=== PATIENT | female | born 1965 | race American Indian/Alaskan Native ===

== ENCOUNTER 2016-07-21 10:09 | Emergency (ER) | payer OTHER ==
[2016-07-21 10:20] VITALS: TEMP 97.9
--- NOTE | 2016-07-21 10:51 | C.PDOC ---
History Of Present Illness 51 y/o female, PMHx HTN diagnosed 1 year ago, taking Lisionpril 10mg daily, moderately compliant, presents to ED with c/o high blood pressure and headaches. Pt states she has had intermittent headaches for 1 year. She reports that she took off of work yesterday and noted her blood pressure was elevated. Patient brought to ER today by coworker. Describes headache as dull, throbbing, 3/10. Notes taking Tylenol 1 hour [employer]. Otherwise, denies fever, chills, nausea, vomiting, SOB, or chest pain. Time Seen by Provider: 07/21/16 10:19 Chief Complaint (Nursing): Headache History Per: Patient History/Exam Limitations: no limitations Onset/Duration Of Symptoms: Days Current Symptoms Are (Timing): Still Present Pain Scale Rating Of: 3 Preceeding Symptoms: None Associated Symptoms: denies: Photophobia, Nausea, Vomiting, Extremity Weakness Recent travel outside of the [place]: No Past Medical History Reviewed: Historical Data, Nursing Documentation, Vital Signs Vital Signs: Last Vital Signs Temp 97.9 F 07/21/16 10:17 Pulse 69 07/21/16 12:37 Resp 16 07/21/16 12:37 BP 140/88 07/21/16 12:37 Pulse Ox 100 07/21/16 12:37 - Medical History PMH: HTN Family History: States: Unknown Family Hx - Social History Hx Alcohol Use: No Hx Substance Use: No - Immunization History Hx Tetanus Toxoid Vaccination: No Hx Influenza Vaccination: No Hx Pneumococcal Vaccination: No Review Of Systems Except As Marked, All Systems Reviewed And Found Negative. Constitutional: Negative for: Fever, Chills Cardiovascular: Negative for: Chest Pain, Palpitations Respiratory: Negative for: Shortness of Breath Gastrointestinal: Negative for: Nausea, Vomiting Neurological: Positive for: Headache. Negative for: Weakness, Numbness, Dizziness Physical Exam - Physical Exam Appears: Non-toxic, No Acute Distress, Other (hypertensive on arrival) Skin: Normal Color, Warm, Dry Head: Atraumatic, Normacephalic Eye(s): bilateral: Normal Inspection, PERRL, EOMI Neck: Supple Chest: Symmetrical Cardiovascular: Rhythm Regular Respiratory: Normal Breath Sounds, No Rales, No Rhonchi, No Wheezing Gastrointestinal/Abdominal: Soft, No Tenderness Back: Normal Inspection Extremity: Normal ROM, Capillary Refill (< 2 sec. ) Neurological/Psych: Oriented x3, Normal Speech, Normal Cognition ED Course And Treatment - Laboratory Results Result Diagrams: 07/21/16 10:55 07/21/16 10:55 ECG: Interpreted By Me ECG Rhythm: Sinus Rhythm Rate From EC (bpm) O2 Sat by Pulse Oximetry: 100 (RA) Pulse Ox Interpretation: Normal Medical Decision Making Medical Decision Making: Plan: * Bloodwork, UA * EKG * Reassess Progress: Repeat BP improved. Plan to add HCT to medications. Advised f/u with PMD within 1-2 days. Patient feeling better, head ache and elevated BP resolved. Disposition Counseled Patient/Family Regarding: Studies Performed, Diagnosis, Need For Followup, Rx Given - Disposition Disposition: HOME/ ROUTINE Disposition Time: 12:51 Condition: IMPROVED Additional Instructions: Follow up with your doctor. Take your medications as indicated. Return to the Emergency Department with any further complaints. Prescriptions: Hydrochlorothiazide [Microzide] 12.5 mg PO DAILY #30 cap Ibuprofen [Motrin] 600 mg PO TID #15 tab Instructions: Hypertension (ED) Forms: Air Visits Discharge (Polish), General Discharge Instructions, Work Excuse - POA Present On Arrival: None - Clinical Impression Clinical Impression: Headache, Hypertension - Scribe Statement The provider has reviewed the documentation as recorded by the Sofía Kyle Provider Scribe Attestation: All medical record entries made by the Scribe were at my direction and personally dictated by me. I have reviewed the chart and agree that the record accurately reflects my personal performance of the history, physical exam, medical decision making, and the department course for this patient. I have also personally directed, reviewed, and agree with the discharge instructions and disposition.
[2016-07-21 11:01] LABS: BASO % 0.3 % (0.0-2.0); HEMATOCRIT 37.7 % (34.0-47.0); LYMPH # 1.4 K/uL (1.0-4.3); LYMPH % 27.4 % (20.0-40.0); MEAN CELL VOLUME 82.4 fL (81.0-99.0); MEAN CORPUSCULAR HEMOGLOBIN 26.2 pg (27.0-31.0); MEAN CORPUSCULAR HGB CONC 31.8 g/dL (33.0-37.0); MEAN PLATELET VOLUME 8.5 fL (7.2-11.7); MONO # 0.6 K/uL (0.0-0.8); RED CELL DISTRIBUTION WIDTH 13.8 % (11.5-14.5); WHITE BLOOD COUNT 5.1 K/uL (4.8-10.8)
[2016-07-21 11:12] LABS: CHLORIDE 102 mmol/L (98-107); POTASSIUM 3.7 mmol/L (3.6-5.2); SODIUM 142 mmol/L (132-148)
[2016-07-21 11:14] LABS: GFR AFRICAN-AMERICAN > 60
[2016-07-21 11:15] LABS: ALB/GLOB RATIO 1.2 (1.0-2.1); ALKALINE PHOSPHATASE 67 U/L (38-126); ALT/SGPT 10 U/L (9-52); AST/SGOT 28 U/L (14-36); BILIRUBIN,TOTAL 0.7 mg/dL (0.2-1.3); BLOOD UREA NITROGEN 14 mg/dL (7-17); CARBON DIOXIDE 25 mmol/L (22-30); GLUCOSE,RANDOM 91 mg/dL (65-105); TOTAL PROTEIN 7.7 g/dL (6.3-8.3)
[2016-07-21 11:16] LABS: CALCIUM 9.2 mg/dl (8.6-10.4)
[2016-07-21 11:22] LABS: RBC URINE 1 /hpf (0-3); URINE BILIRUBIN NEGATIVE (NEGATIVE); URINE BLOOD NEGATIVE (NEGATIVE); URINE COLOR Yellow (YELLOW); URINE GLUCOSE (UA) NORMAL (Normal); URINE KETONE NEGATIVE (NEGATIVE); URINE LEUKOCYTE ESTERASE NEG Leu/uL (Negative); URINE PROTEIN NEGATIVE (NEGATIVE); URINE UROBILINOGEN NORMAL mg/dL (0.2-1.0); WBC URINE < 1 /hpf (0-5)
[2016-07-21 11:25] VITALS: RESP 16
[2016-07-21 12:38] VITALS: BP 140/88; PULSE 69; O2SAT 100
== END 2016-07-21 13:15 | disposition home or self-care (01) ==
LOC: C.ER 10:09
DX: I10 Essential (primary) hypertension (principal); R51 Headache